=== PATIENT | female | born 1970 | race American Indian/Alaskan Native ===

== ENCOUNTER 2018-04-21 20:30 | Emergency (ER) | payer MEDICAID, OTHER ==
[2018-04-21] MEDS ORDERED: DUONEB *Not for PRN Use IH ONE ×2 (21:01→21:41)
[2018-04-21] MEDS ORDERED: ASPIRIN PO ONE (21:23)
[2018-04-21 22:07] LABS: BUN/Creatinine Ratio 13; Blood Urea Nitrogen 15 mg/dL (7-17); Calcium 9.5 mg/dL (8.4-10.2); Hemolysis Index 31
[2018-04-21 22:10] LABS: Hematocrit 38.2 % (30.3-42.9); Hemoglobin 12.7 gm/dl (10.1-14.3); Mean Corpuscular HGB Conc 33 % (30-34); Mean Corpuscular Hemoglobin 30 pg (28-32); Mean Corpuscular Volume 91 fl (79-97); Platelet Count 311 K/mm3 (140-440); Red Cell Distribution Width 13.6 % (13.2-15.2)
[2018-04-21] MEDS ORDERED: CATAPRES ONE (23:31)
[2018-04-22] MEDS ORDERED: ZITHROMAX PO ONE (00:07)
[2018-04-22] MEDS ORDERED: PROVENTIL IH ONE (00:07)
[2018-04-22] MEDS ORDERED: DELTASONE PO ONE (00:07)
--- NOTE | 2018-04-22 01:09 | XRay Report ---
FINAL REPORT EXAM: XR CHEST ROUTINE 2V HISTORY: Chest pain TECHNIQUE: PA and lateral views of the chest were obtained. PRIORS: None. FINDINGS: There are no focal consolidations to suggest pneumonia. No large pleural effusion. No pneumothorax. Cardiac silhouette and mediastinal structures are unremarkable. No acute osseous abnormality identified. IMPRESSION: No radiographic evidence of acute cardiopulmonary disease.
--- NOTE | 2018-04-22 01:30 | Emergency Department Report ---
ED General Adult HPI - General Chief complaint: Chest Pain Stated complaint: CHEST AND SHOULDER PAIN Time Seen by Provider: 04/21/18 23:44 Source: patient Mode of arrival: Ambulatory Limitations: No Limitations - History of Present Illness Initial comments: Progressive onset SOB x3 days. Has been using her inhaler every 6-8 hours. Has heard herself wheezing with runny nose and eyes. H/o seasonal allergies. Currently on claritin. Nonsmoker. Says that she had a temp yesterday of 101. Has been coughing so much that the center of her chest has started hurting. Her CP is nonexertional, but it pleuritic and reproducible on palpation. Does have an intermittently productive cough. - Related Data Previous Rx's Medication Instructions Recorded Last Taken Type Acetaminophen/Codeine [Tylenol #3] 1 tab PO Q6H PRN #10 tab 08/07/15 Unknown Rx Cephalexin [Keflex] 500 mg PO Q12HR 5 Days cap 08/07/15 Unknown Rx Cyclobenzaprine HCl [Flexeril 5 MG 5 mg PO TID #20 tab 05/15/16 Unknown Rx TAB] HYDROcodone/APAP 5-325 [[place] 1 each PO Q6HR PRN #30 tablet 05/15/16 Unknown Rx 5/325] Ibuprofen [Motrin 600 MG tab] 600 mg PO Q8H PRN #30 tablet 05/15/16 Unknown Rx oxyCODONE /ACETAMINOPHEN [Percocet 1 tab PO Q6HR PRN #7 tablet 05/16/16 Unknown Rx 5/325] ALBUTEROL Inhaler [ProAir HFA 2 puff IH QID PRN #1 inhalation 04/22/18 Unknown Rx Inhaler] Azithromycin 250 mg PO DAILY #4 tablet 04/22/18 Unknown Rx HYDROcodone/HOMATROP 5-1.5 5 ml PO DAILY PRN #10 ml 04/22/18 Unknown Rx [Hydromet] Prednisone 50 mg PO DAILY #4 tablet 04/22/18 Unknown Rx Allergies Allergy/AdvReac Type Severity Reaction Status Date / Time epinephrine Allergy Hives Verified 04/21/18 21:23 [From Primatene Mist] ED Review of Systems ROS: Stated complaint: CHEST AND SHOULDER PAIN Other details as noted in HPI Comment: All other systems reviewed and negative ENT: congestion Respiratory: cough, shortness of breath, wheezing Cardiovascular: chest pain ED Past Medical Hx - Past Medical History Hx Hypertension: Yes (borderline) Hx Asthma: Yes - Surgical History Additional Surgical History: C section - Social History Smoking Status: Never Smoker Substance Use Type: None - Medications Home Medications: Home Medications Medication Instructions Recorded Confirmed Last Taken Type Acetaminophen/Codeine [Tylenol #3] 1 tab PO Q6H PRN #10 tab 08/07/15 Unknown Rx Cephalexin [Keflex] 500 mg PO Q12HR 5 Days cap 08/07/15 Unknown Rx Cyclobenzaprine HCl [Flexeril 5 MG 5 mg PO TID #20 tab 05/15/16 Unknown Rx TAB] HYDROcodone/APAP 5-325 [[place] 1 each PO Q6HR PRN #30 tablet 05/15/16 Unknown Rx 5/325] Ibuprofen [Motrin 600 MG tab] 600 mg PO Q8H PRN #30 tablet 05/15/16 Unknown Rx oxyCODONE /ACETAMINOPHEN [Percocet 1 tab PO Q6HR PRN #7 tablet 05/16/16 Unknown Rx 5/325] ALBUTEROL Inhaler [ProAir HFA 2 puff IH QID PRN #1 inhalation 04/22/18 Unknown Rx Inhaler] Azithromycin 250 mg PO DAILY #4 tablet 04/22/18 Unknown Rx HYDROcodone/HOMATROP 5-1.5 5 ml PO DAILY PRN #10 ml 04/22/18 Unknown Rx [Hydromet] Prednisone 50 mg PO DAILY #4 tablet 04/22/18 Unknown Rx ED Physical Exam - General Limitations: No Limitations General appearance: alert, in no apparent distress - Head Head exam: Present: atraumatic, normocephalic - Eye Eye exam: Present: normal appearance - ENT ENT exam: Present: mucous membranes moist - Neck Neck exam: Present: normal inspection - Respiratory Respiratory exam: Present: normal lung sounds bilaterally. Absent: respiratory distress, wheezes, rales, rhonchi - Cardiovascular Cardiovascular Exam: Present: regular rate, normal rhythm, tachycardia. Absent : systolic murmur, diastolic murmur, rubs, gallop, JVD - GI/Abdominal GI/Abdominal exam: Present: soft, normal bowel sounds. Absent: distended, tenderness, guarding, rebound - Extremities Exam Extremities exam: Present: normal inspection - Back Exam Back exam: Present: normal inspection - Neurological Exam Neurological exam: Present: alert, oriented X3 - Psychiatric Psychiatric exam: Present: normal affect, normal mood - Skin Skin exam: Present: warm, dry, intact, normal color. Absent: rash ED Course Vital Signs 04/21/18 04/22/18 04/22/18 20:50 01:03 01:12 Temperature 98.9 F Pulse Rate 111 H Pulse Rate [ 101 H 97 H Posterior Bilateral] Respiratory 16 16 Rate [Posterior Bilateral] Blood Pressure 198/100 O2 Sat by Pulse 100 Oximetry ED Medical Decision Making - Lab Data Result diagrams: 04/21/18 21:36 04/21/18 21:36 - EKG Data -: EKG Interpreted by Me EKG shows normal: sinus rhythm, axis, intervals, QRS complexes, ST-T waves Rate: tachycardia - EKG Data Interpretation: no acute changes - Radiology Data Radiology results: report reviewed, image reviewed - Medical Decision Making 47 yo female with pmhx asthma, seasonal allergies that presents to the ER with asthma exacerbation. Pt is tachycardic on presentation. Likely this is related to the patient's breathing treatment before she got here. Patient shows no evidence of respiratory distress. Lungs sound clear to auscultation to me. EKG shows sinus tachycardia. Lab work is unremarkable. Low suspicion for PE given progressive onset of symptoms and similarity to her past asthma exacerbation. Patient was given a breathing treatment in the ER and felt better on reevaluation. Chest x-ray shows no focal process. She'll be started on prednisone/azithromycin. Patient has a somatic hypertension in the ER. She does have history of high blood pressure, but does not know what medication she takes nor the dosage. Since patient is asymptomatic, I told her to go home and return tomorrow with the pill bottle and one of the providers would be happy to write a prescription at that time. - Differential Diagnosis acs, pna, pe, asthma vs bronchitis, sepsis, chf exacerabtion, copd Critical care attestation.: If time is entered above; I have spent that time in minutes in the direct care of this critically ill patient, excluding procedure time. ED Disposition Clinical Impression: Asthma, Seasonal allergic rhinitis, Hypertension Disposition: - TO HOME OR SELFCARE Is pt being admited?: No Does the pt Need Aspirin: No Condition: Stable Instructions: Asthma (ED), Hypertension (ED) Additional Instructions: Start taking a daily flonase for the next week to help with your seasonal allergies. This can be purchased over the counter. Follow up with Dr. Ly for further primary care. Return tomorrow with your anti-hypertensive medicine and an ER provider will write you a prescription for it. Prescriptions: ALBUTEROL Inhaler [ProAir HFA Inhaler] 2 puff IH QID PRN #1 inhalation PRN Reason: Shortness Of Breath Azithromycin 250 mg PO DAILY #4 tablet HYDROcodone/HOMATROP 5-1.5 [Hydromet] 5 ml PO DAILY PRN #10 ml PRN Reason: Pain, Moderate (4-6) Prednisone 50 mg PO DAILY #4 tablet Referrals: PRIMARY CARE, [Primary Care Provider] - 3-5 Days USMAN LY MD [Staff Physician] - 3-5 Days
[2018-04-22 01:41] VITALS: BP 163/86
== END 2018-04-22 02:07 | disposition home or self-care (01) ==
LOC: ED 20:30
DX: J45.909 Unspecified asthma, uncomplicated (principal); I10 Essential (primary) hypertension; Z88.8 Allergy status to other drugs, medicaments and biological substances
CPT/HCPCS: 36415; 71046; 80048; 84484; 84703; 85025; 93005; 93010; 94640; 99285; J7512

== ENCOUNTER 2018-10-14 10:53 | Emergency (ER) | payer BC, OTHER ==
--- NOTE | 2018-10-14 12:42 | Emergency Department Report ---
ED General Adult HPI - General Chief complaint: Upper Respiratory Infection Stated complaint: FLU SYM/ASTHMA Time Seen by Provider: 10/14/18 12:01 Source: patient Mode of arrival: Ambulatory Limitations: No Limitations - History of Present Illness Initial comments: Patient presents to emergency department with a chief complaint of flulike symptoms. Patient states 2 days ago she began to have body aches, cough and fever. Patient also states that she is out of her hypertensive medications and her albuterol for asthma. Patient denies chest pain, headache, abdominal pain. Patient endorses sick contacts -: Gradual Radiation: non-radiation Severity scale (0 -10): 5 Quality: aching Consistency: constant Improves with: none Worsens with: none Associated Symptoms: denies other symptoms Treatments Prior to Arrival: none - Related Data Previous Rx's Medication Instructions Recorded Last Taken Type Acetaminophen/Codeine [Tylenol #3] 1 tab PO Q6H PRN #10 tab 08/07/15 Unknown Rx cephALEXin [Keflex] 500 mg PO Q12HR 5 Days cap 08/07/15 Unknown Rx Cyclobenzaprine HCl [Flexeril 5 MG 5 mg PO TID #20 tab 05/15/16 Unknown Rx TAB] HYDROcodone/APAP 5-325 [[place] 1 each PO Q6HR PRN #30 tablet 05/15/16 Unknown Rx 5/325] RX: Ibuprofen [Motrin 600 MG tab] 600 mg PO Q8H PRN #30 tablet 05/15/16 Unknown Rx oxyCODONE /ACETAMINOPHEN [Percocet 1 tab PO Q6HR PRN #7 tablet 05/16/16 Unknown Rx 5/325] HYDROcodone/HOMATROP 5-1.5 5 ml PO DAILY PRN #10 ml 04/22/18 Unknown Rx [Hydromet] RX: ALBUTEROL Inhaler (OR & NICU) 2 puff IH QID PRN #1 inhalation 04/22/18 Unknown Rx [ProAir HFA Inhaler] RX: Azithromycin 250 mg PO DAILY #4 tablet 04/22/18 Unknown Rx RX: predniSONE [Prednisone] 50 mg PO DAILY #4 tablet 04/22/18 Unknown Rx Acetaminophen/Codeine [Tylenol 1 tab PO Q4HR PRN #15 tablet 10/14/18 Unknown Rx /Codeine # 3 tab] Benzonatate [Tessalon Perles] 100 mg PO Q8HR #20 capsule 10/14/18 Unknown Rx Oseltamivir [Tamiflu] 75 mg PO BID #10 cap 10/14/18 Unknown Rx RX: ALBUTEROL Inhaler(NF) 2 puff IH Q4HR PRN #1 inha 10/14/18 Unknown Rx [VENTOLIN Inhaler(NF)] amLODIPine [Norvasc] 5 mg PO DAILY #30 tab 10/14/18 Unknown Rx Cetirizine HCl [ZyrTEC] 10 mg PO QAM 14 Days #14 capsule 10/16/18 Unknown Rx Fluticasone [Flonase] 1 spray NS QDAY 14 Days #1 bottle 10/16/18 Unknown Rx RX: ALBUTEROL Inhaler (OR & NICU) 2 puff IH QID PRN #1 inhalation 10/16/18 Unknown Rx [ProAir HFA Inhaler] RX: ALBUTEROL NEB's [Proventil 3 ml IH Q6H PRN #1 box 10/16/18 Unknown Rx 0.083% NEBS] RX: Nebulizer Accessories 1 each MC ONCE #1 each 10/16/18 Unknown Rx [Sootheneb [id number] Adult Mask] RX: Nebulizer and Compressor 1 each MC ONCE #1 each 10/16/18 Unknown Rx [Portable Nebulizer System] RX: Triamter/Hctz 37.5-25 mg 1 tab PO QDAY #30 tablet 10/16/18 Unknown Rx [Maxzide-25] predniSONE [Prednisone] 10 mg PO QAM 6 Days #1 tab.ds.pk 10/16/18 Unknown Rx Allergies Allergy/AdvReac Type Severity Reaction Status Date / Time epinephrine Allergy Hives Verified 04/21/18 21:23 [From Primatene Mist] ED Review of Systems ROS: Stated complaint: FLU SYM/ASTHMA Other details as noted in HPI ED Past Medical Hx - Past Medical History Hx Hypertension: Yes (borderline) Hx Asthma: Yes - Surgical History Past Surgical History?: Yes Additional Surgical History: C section - Social History Smoking Status: Never Smoker - Medications Home Medications: Home Medications Medication Instructions Recorded Confirmed Last Taken Type Acetaminophen/Codeine [Tylenol #3] 1 tab PO Q6H PRN #10 tab 08/07/15 Unknown Rx cephALEXin [Keflex] 500 mg PO Q12HR 5 Days cap 08/07/15 Unknown Rx Cyclobenzaprine HCl [Flexeril 5 MG 5 mg PO TID #20 tab 05/15/16 Unknown Rx TAB] HYDROcodone/APAP 5-325 [[place] 1 each PO Q6HR PRN #30 tablet 05/15/16 Unknown Rx 5/325] RX: Ibuprofen [Motrin 600 MG tab] 600 mg PO Q8H PRN #30 tablet 05/15/16 Unknown Rx oxyCODONE /ACETAMINOPHEN [Percocet 1 tab PO Q6HR PRN #7 tablet 05/16/16 Unknown Rx 5/325] HYDROcodone/HOMATROP 5-1.5 5 ml PO DAILY PRN #10 ml 04/22/18 Unknown Rx [Hydromet] RX: ALBUTEROL Inhaler (OR & NICU) 2 puff IH QID PRN #1 inhalation 04/22/18 Unknown Rx [ProAir HFA Inhaler] RX: Azithromycin 250 mg PO DAILY #4 tablet 04/22/18 Unknown Rx RX: predniSONE [Prednisone] 50 mg PO DAILY #4 tablet 04/22/18 Unknown Rx Acetaminophen/Codeine [Tylenol 1 tab PO Q4HR PRN #15 tablet 10/14/18 Unknown Rx /Codeine # 3 tab] Benzonatate [Tessalon Perles] 100 mg PO Q8HR #20 capsule 10/14/18 Unknown Rx Oseltamivir [Tamiflu] 75 mg PO BID #10 cap 10/14/18 Unknown Rx RX: ALBUTEROL Inhaler(NF) 2 puff IH Q4HR PRN #1 inha 10/14/18 Unknown Rx [VENTOLIN Inhaler(NF)] amLODIPine [Norvasc] 5 mg PO DAILY #30 tab 10/14/18 Unknown Rx Cetirizine HCl [ZyrTEC] 10 mg PO QAM 14 Days #14 capsule 10/16/18 Unknown Rx Fluticasone [Flonase] 1 spray NS QDAY 14 Days #1 bottle 10/16/18 Unknown Rx RX: ALBUTEROL Inhaler (OR & NICU) 2 puff IH QID PRN #1 inhalation 10/16/18 Unknown Rx [ProAir HFA Inhaler] RX: ALBUTEROL NEB's [Proventil 3 ml IH Q6H PRN #1 box 10/16/18 Unknown Rx 0.083% NEBS] RX: Nebulizer Accessories 1 each MC ONCE #1 each 10/16/18 Unknown Rx [Sootheneb [id number] Adult Mask] RX: Nebulizer and Compressor 1 each MC ONCE #1 each 10/16/18 Unknown Rx [Portable Nebulizer System] RX: Triamter/Hctz 37.5-25 mg 1 tab PO QDAY #30 tablet 10/16/18 Unknown Rx [Maxzide-25] predniSONE [Prednisone] 10 mg PO QAM 6 Days #1 tab.ds.pk 10/16/18 Unknown Rx ED Physical Exam - General Limitations: No Limitations ED Course Vital Signs 10/14/18 10/14/18 10:56 12:49 Temperature 97.7 F Pulse Rate 122 H 98 H Respiratory 20 18 Rate Blood Pressure 179/100 Blood Pressure 174/102 [Left] O2 Sat by Pulse 100 100 Oximetry ED Medical Decision Making - Medical Decision Making Discussed plan of care with patient Critical care attestation.: If time is entered above; I have spent that time in minutes in the direct care of this critically ill patient, excluding procedure time. ED Disposition Clinical Impression: Influenza, Hypertension, Cough Disposition: TO HOME OR SELFCARE Is pt being admited?: No Does the pt Need Aspirin: No Condition: Stable Instructions: Influenza (ED), Hypertension (ED) Additional Instructions: return if worse Prescriptions: Acetaminophen/Codeine [Tylenol /Codeine # 3 tab] 1 tab PO Q4HR PRN #15 tablet PRN Reason: Pain RX: ALBUTEROL Inhaler(NF) [VENTOLIN Inhaler(NF)] 2 puff IH Q4HR PRN #1 inha PRN Reason: Shortness Of Breath amLODIPine [Norvasc] 5 mg PO DAILY #30 tab Benzonatate [Tessalon Perles] 100 mg PO Q8HR #20 capsule Oseltamivir [Tamiflu] 75 mg PO BID #10 cap Referrals: CATALINA SMYTH MD [Primary Care Provider] - 3-5 Days Forms: Work/School Release Form(ED)
== END 2018-10-14 12:49 | disposition home or self-care (01) ==
LOC: ED 10:53
CPT/HCPCS: 99282

== ENCOUNTER 2019-09-14 15:48 | Emergency (ER) | payer BC, OTHER ==
--- NOTE | 2019-09-14 20:48 | Event Note ---
ED Screening Note ED Screening Note: PMHx keloid states it became irritated by wearing jeans states she saw a small amount of drainage last night states she has an appointment with dermatology on 09/17/19 states she has not taken her bp medicine in 5 days
--- NOTE | 2019-09-14 20:56 | Emergency Department Report ---
ED General Adult HPI - General Chief complaint: Skin/Abscess/Foreign Body Stated complaint: PAIN Time Seen by Provider: 09/14/19 20:41 Source: patient Mode of arrival: Ambulatory Limitations: No Limitations - History of Present Illness Initial comments: pt is a 48 yo female who presents to the ED with c/o pain to her keloid in her umbilicus that began yesterday. PMHx keloid she has had it for several years, and sees a central office equipment installer for it. she states it became irritated by wearing jeans. she states she saw a small amount of drainage last night. she states she has an appointment with dermatology on 09/17/19. she does not report any fever, v/d, chills, or any other symptoms. pt states she has not taken her bp medicine in 5 days. she states she takes triamterene hctz. the patient states she cannot see her PCP until later this week due to the holidays. - Related Data Previous Rx's Medication Instructions Recorded Last Taken Type Acetaminophen/Codeine [Tylenol #3] 1 tab PO Q6H PRN #10 tab 08/07/15 Unknown Rx cephALEXin [Keflex] 500 mg PO Q12HR 5 Days cap 08/07/15 Unknown Rx Cyclobenzaprine HCl [Flexeril 5 MG 5 mg PO TID #20 tab 05/15/16 Unknown Rx TAB] HYDROcodone/APAP 5-325 [[place] 1 each PO Q6HR PRN #30 tablet 05/15/16 Unknown Rx 5/325] Ibuprofen [Motrin 600 MG tab] 600 mg PO Q8H PRN #30 tablet 05/15/16 Unknown Rx oxyCODONE /ACETAMINOPHEN [Percocet 1 tab PO Q6HR PRN #7 tablet 05/16/16 Unknown Rx 5/325] ALBUTEROL Inhaler (OR & NICU) 2 puff IH QID PRN #1 inhalation 04/22/18 Unknown Rx [ProAir HFA Inhaler] Azithromycin 250 mg PO DAILY #4 tablet 04/22/18 Unknown Rx HYDROcodone/HOMATROP 5-1.5 5 ml PO DAILY PRN #10 ml 04/22/18 Unknown Rx [Hydromet] predniSONE [Prednisone] 50 mg PO DAILY #4 tablet 04/22/18 Unknown Rx ALBUTEROL Inhaler(NF) [VENTOLIN 2 puff IH Q4HR PRN #1 inha 10/14/18 Unknown Rx Inhaler(NF)] Acetaminophen/Codeine [Tylenol 1 tab PO Q4HR PRN #15 tablet 10/14/18 Unknown Rx /Codeine # 3 tab] Benzonatate [Tessalon Perles] 100 mg PO Q8HR #20 capsule 10/14/18 Unknown Rx Oseltamivir [Tamiflu] 75 mg PO BID #10 cap 10/14/18 Unknown Rx amLODIPine [Norvasc] 5 mg PO DAILY #30 tab 10/14/18 Unknown Rx ALBUTEROL Inhaler (OR & NICU) 2 puff IH QID PRN #1 inhalation 10/16/18 Unknown Rx [ProAir HFA Inhaler] ALBUTEROL NEB's [Proventil 0.083% 3 ml IH Q6H PRN #1 box 10/16/18 Unknown Rx NEBS] Cetirizine HCl [ZyrTEC] 10 mg PO QAM 14 Days #14 capsule 10/16/18 Unknown Rx Fluticasone [Flonase] 1 spray NS QDAY 14 Days #1 bottle 10/16/18 Unknown Rx Nebulizer Accessories [Sootheneb 1 each MC ONCE #1 each 10/16/18 Unknown Rx [id number] Adult Mask] Nebulizer and Compressor [Portable 1 each MC ONCE #1 each 10/16/18 Unknown Rx Nebulizer System] predniSONE [Prednisone] 10 mg PO QAM 6 Days #1 tab.ds.pk 10/16/18 Unknown Rx Triamter/Hctz 37.5-25 mg 1 tab PO QDAY #14 tablet 09/14/19 Unknown Rx [Maxzide-25] Allergies Allergy/AdvReac Type Severity Reaction Status Date / Time epinephrine Allergy Hives Verified 04/21/18 21:23 [From Primatene Mist] ED Review of Systems ROS: Stated complaint: PAIN Other details as noted in HPI Comment: All other systems reviewed and negative ED Past Medical Hx - Past Medical History Previous Medical History?: Yes Hx Hypertension: Yes (borderline) Hx Asthma: Yes - Surgical History Past Surgical History?: Yes Additional Surgical History: C section - Social History Smoking Status: Never Smoker Substance Use Type: None - Medications Home Medications: Home Medications Medication Instructions Recorded Confirmed Last Taken Type Acetaminophen/Codeine [Tylenol #3] 1 tab PO Q6H PRN #10 tab 08/07/15 Unknown Rx cephALEXin [Keflex] 500 mg PO Q12HR 5 Days cap 08/07/15 Unknown Rx Cyclobenzaprine HCl [Flexeril 5 MG 5 mg PO TID #20 tab 05/15/16 Unknown Rx TAB] HYDROcodone/APAP 5-325 [[place] 1 each PO Q6HR PRN #30 tablet 05/15/16 Unknown Rx 5/325] Ibuprofen [Motrin 600 MG tab] 600 mg PO Q8H PRN #30 tablet 05/15/16 Unknown Rx oxyCODONE /ACETAMINOPHEN [Percocet 1 tab PO Q6HR PRN #7 tablet 05/16/16 Unknown Rx 5/325] ALBUTEROL Inhaler (OR & NICU) 2 puff IH QID PRN #1 inhalation 04/22/18 Unknown Rx [ProAir HFA Inhaler] Azithromycin 250 mg PO DAILY #4 tablet 04/22/18 Unknown Rx HYDROcodone/HOMATROP 5-1.5 5 ml PO DAILY PRN #10 ml 04/22/18 Unknown Rx [Hydromet] predniSONE [Prednisone] 50 mg PO DAILY #4 tablet 04/22/18 Unknown Rx ALBUTEROL Inhaler(NF) [VENTOLIN 2 puff IH Q4HR PRN #1 inha 10/14/18 Unknown Rx Inhaler(NF)] Acetaminophen/Codeine [Tylenol 1 tab PO Q4HR PRN #15 tablet 10/14/18 Unknown Rx /Codeine # 3 tab] Benzonatate [Tessalon Perles] 100 mg PO Q8HR #20 capsule 10/14/18 Unknown Rx Oseltamivir [Tamiflu] 75 mg PO BID #10 cap 10/14/18 Unknown Rx amLODIPine [Norvasc] 5 mg PO DAILY #30 tab 10/14/18 Unknown Rx ALBUTEROL Inhaler (OR & NICU) 2 puff IH QID PRN #1 inhalation 10/16/18 Unknown Rx [ProAir HFA Inhaler] ALBUTEROL NEB's [Proventil 0.083% 3 ml IH Q6H PRN #1 box 10/16/18 Unknown Rx NEBS] Cetirizine HCl [ZyrTEC] 10 mg PO QAM 14 Days #14 capsule 10/16/18 Unknown Rx Fluticasone [Flonase] 1 spray NS QDAY 14 Days #1 bottle 10/16/18 Unknown Rx Nebulizer Accessories [Sootheneb 1 each MC ONCE #1 each 10/16/18 Unknown Rx [id number] Adult Mask] Nebulizer and Compressor [Portable 1 each MC ONCE #1 each 10/16/18 Unknown Rx Nebulizer System] predniSONE [Prednisone] 10 mg PO QAM 6 Days #1 tab.ds.pk 10/16/18 Unknown Rx Triamter/Hctz 37.5-25 mg 1 tab PO QDAY #14 tablet 09/14/19 Unknown Rx [Maxzide-25] ED Physical Exam - General Limitations: No Limitations General appearance: alert, in no apparent distress - Head Head exam: Present: atraumatic, normocephalic - Eye Eye exam: Present: normal appearance - ENT ENT exam: Present: mucous membranes moist - GI/Abdominal GI/Abdominal exam: Present: soft, normal bowel sounds, other (no umbilical hernia, no peritoneal signs ). Absent: distended, tenderness, guarding, rebound, rigid - Neurological Exam Neurological exam: Present: alert, oriented X3 - Psychiatric Psychiatric exam: Present: normal affect, normal mood - Skin Skin exam: Present: warm, dry, other (2 cm keloid like structure present in the umbilicus, there is no drainage, no erythema, no increased warmth, no fluctuance, no induration) ED Course Vital Signs 09/14/19 09/14/19 20:33 21:15 Temperature 98.2 F Pulse Rate 105 H Respiratory 18 Rate Blood Pressure 180/95 Blood Pressure 152/96 [Left] O2 Sat by Pulse 100 Oximetry ED Medical Decision Making - Medical Decision Making pt is a 48 yo female who presents to the ED with c/o pain to her keloid in her umbilicus that began yesterday. PMHx keloid she has had it for several years, and sees a central office equipment installer for it. she states it became irritated by wearing jeans. she states she saw a small amount of drainage last night. she states she has an appointment with dermatology on 09/17/19. she does not report any fever, v/d, chills, or any other symptoms. pt states she has not taken her bp medicine in 5 days. she states she takes triamterene hctz. the patient states she cannot see her PCP until later this week due to the holidays. vitals with mildly elevated blood pressure on repeat and mild tachycardia. on exam: 2 cm keloid like structure present in the umbilicus, there is no drainage, no erythema, no increased warmth, no fluctuance, no induration, no peritoneal signs, no umbilical hernia. pt is requesting a XR of her keloid, I advised pt that an XR does not show soft tissue, I also advised pt there is no signs of cellulitis or abscess or infection and there is no drainage present, there is no need for oral antibiotics. pt given a two week supply of her HTN medication until she can see her PCP for refill. advised pt may take tylenol or ibuprofen for discomfort. may use over the counter triple antibiotic cream or neosporin, there is no signs of infection today. please see your central office equipment installer for your chronic keloid for further evaluation and management. please take your blood pressure medication as prescribed. take your blood pressure three times a day and keep a log and take to your primary care doctor. increase your water intake, eat a low sodium diet, and incorporate daily exercise. please see your primary care doctor for reexamination and for refills of your medications. return to the emergency room for any new or worsening symptoms. Critical care attestation.: If time is entered above; I have spent that time in minutes in the direct care of this critically ill patient, excluding procedure time. ED Disposition Clinical Impression: Keloid Hypertension Qualifiers: Hypertension type: unspecified Qualified Code(s): I10 - Essential (primary) hypertension Disposition: DC-01 TO HOME OR SELFCARE Is pt being admited?: No Does the pt Need Aspirin: No Condition: Stable Instructions: Hypertension (ED) Additional Instructions: may take tylenol or ibuprofen for discomfort. may use over the counter triple antibiotic cream or neosporin, there is no signs of infection today. please see your central office equipment installer for your chronic keloid for further evaluation and management. please take your blood pressure medication as prescribed. take your blood pressure three times a day and keep a log and take to your primary care doctor. increase your water intake, eat a low sodium diet, and incorporate daily exercise. please see your primary care doctor for reexamination and for refills of your medications. return to the emergency room for any new or worsening symptoms. Prescriptions: Triamter/Hctz 37.5-25 mg [Maxzide-25] 1 tab PO QDAY #14 tablet Referrals: PRIMARY CARE,MD [Primary Care Provider] - 2-3 Days your, central office equipment installer [Other] - 2-3 Days Forms: Work/School Release Form(ED) Time of Disposition: 20:53 Print Language: MACEDONIAN
[2019-09-14 21:16] VITALS: BP 152/96
== END 2019-09-14 21:16 | disposition home or self-care (01) ==
LOC: ED 15:48
DX: L91.0 Hypertrophic scar (principal); I10 Essential (primary) hypertension; J45.909 Unspecified asthma, uncomplicated; Z79.899 Other long term (current) drug therapy; Z88.6 Allergy status to analgesic agent